=== PATIENT | female | born 1995 | race Caucasian/White ===

== ENCOUNTER 2020-06-06 15:42 | Emergency (ER) | payer BC ==
[~2020-06-06] VITALS: Ht 152.4 cm; Wt 48.8 kg
[2020-06-06 15:44] VITALS: BP 141/77
== END 2020-06-06 16:19 | disposition home or self-care (01) ==
LOC: ED 16:06
DX: G43.B0 Ophthalmoplegic migraine, not intractable (principal); H54.7 Unspecified visual loss
CPT/HCPCS: 99283

== ENCOUNTER 2020-07-12 14:32 | Emergency (ER) | payer BC ==
[~2020-07-12] VITALS: Ht 152.4 cm; Wt 45.6 kg
[2020-07-12] MEDS ORDERED: ONDANSETRON 2MG/ML, 2ML ONE (14:53)
[2020-07-12] MEDS ORDERED: FAMOTIDINE 20 MG/2 ML ONE (14:53)
[2020-07-12] MEDS ORDERED: SODIUM CHLORIDE FLUSH 10ML SYR IVF ONE (15:00)
[2020-07-12] MEDS ORDERED: SODIUM CHLORIDE 0.9% 1,000ML IVBOLUS ONE ×2 (15:00→17:30)
[2020-07-12] MEDS ORDERED: ONDANSETRON 2MG/ML, 2ML IVPush ONE (15:00)
[2020-07-12] MEDS ORDERED: FAMOTIDINE 20 MG/2 ML IVPush ONE (15:00)
--- NOTE | 2020-07-12 15:04 | NUR ---
PT BROUGHT BACK TO ROOM FROM TRIAGE VIA WHEELCHAIR. PT CO N/V SINCE LAST EVENING. PT UNABLE TO KEEP ANY FLUID DOWN. PT DENIES ANY FEVER OR DIARRHEA. PT STATED THAT SHE WENT OUT DRINKING LAST NIGHT AND HAS THIS EXPERIENCE SOMETIMES AFTER SHE DRINKS. PT DENIES ANY BLOOD IN VOMIT.
[2020-07-12 15:20] LABS: BASOPHILS % (AUTO) 1 % (0-1); EOSINOPHILS % (AUTO) 0 % (1-7); LYMPHOCYTES % (AUTO) 8 % (22-44); MEAN CORPUSCULAR HEMOGLOBIN 25.5 pg (27.0-34.8); MEAN CORPUSCULAR HGB CONC 32.2 g/dL (32.4-35.8); MEAN PLATELET VOLUME 7.8 fL (7.4-10.4); MONOCYTES % (AUTO) 7 % (2-9); NEUTROPHILS % (AUTO) 84 % (42-75); PLATELET COUNT 366 x10^3/uL (130-400); RED BLOOD COUNT 4.94 x10^6/uL (3.82-5.3); RED CELL DISTRIBUTION WIDTH 15.6 % (9.6-15.2)
[2020-07-12 15:21] LABS: MD NO
[2020-07-12 15:28] LABS: ALBUMIN 4.1 g/dL (3.4-5.0); ANION GAP 13 mmol/L (5-15); CALCIUM 9.2 mg/dL (8.5-10.1); CHLORIDE 107 mmol/L (98-107); CREATININE 0.96 mg/dL (0.55-1.02)
[2020-07-12 15:32] LABS: ALANINE AMINOTRANSFERASE 21 U/L (12-78); ALKALINE PHOSPHATASE 63 U/L (45-117); BILIRUBIN,TOTAL 0.5 mg/dL (0.2-1.0); TOTAL PROTEIN 7.7 g/dL (6.4-8.2)
[2020-07-12 15:43] LABS: MICROSCOPIC INDICATED
--- NOTE | 2020-07-12 15:55 | NUR ---
PT RESTING IN [facility]. IVF INFUSING. CALL LIGHT WITHIN REACH.
[2020-07-12] MEDS ORDERED: METOCLOPRAMIDE 5 MG/ML, 2ML ONE (16:24)
[2020-07-12] MEDS ORDERED: METOCLOPRAMIDE 5 MG/ML, 2ML IVPush ONE (16:30)
--- NOTE | 2020-07-12 17:00 | NUR ---
PT TOLERATING PO. PT STATED THAT SHE DOESNT FEEL NAUSEOUS ANY MORE. ROCK[employer] MORALES NOTIFIED.
[2020-07-12 17:40] VITALS: BP 95/54
== END 2020-07-12 17:48 | disposition home or self-care (01) ==
LOC: ED 14:54
DX: K52.9 Noninfective gastroenteritis and colitis, unspecified (principal); E86.0 Dehydration; R11.2 Nausea with vomiting, unspecified; G43.909 Migraine, unspecified, not intractable, without status migrainosus
CPT/HCPCS: 36415; 80053; 81001; 83690; 84703; 85025; 96361; 96374; 96375; 99284; J2405; J2765; J7030